=== PATIENT | female | born 1975 | race Caucasian/White ===

== ENCOUNTER 2016-11-01 05:40 | Day surgery (SDC) | payer OTHER ==
[~2016-11-01] VITALS: Ht 165.1 cm; Wt 67.0 kg
[~2016-11-01 05:40] MED LIST: FLOVENT 44120 INHALA IH; GINGER500 MG PO; KLONOPIN0.5 M1 PO; VENTOLIN HFA18 GM IH
[2016-11-01 06:31] VITALS: BP 136/91
[2016-11-01 08:40] VITALS: BP 109/71
[2016-11-01 09:45] VITALS: BP 109/69
== END 2016-11-01 10:08 | disposition home or self-care (01) ==
LOC: SDC 05:40
PROC: 0U5G7ZZ Destruction of Vagina, Via Natural or Artificial Opening (ICD-10-PCS; principal; 2016-11-01)
DX: N89.0 Mild vaginal dysplasia (principal); J45.20 Mild intermittent asthma, uncomplicated; K21.9 Gastro-esophageal reflux disease without esophagitis; Z86.19 Personal history of other infectious and parasitic diseases; F41.9 Anxiety disorder, unspecified; G62.9 Polyneuropathy, unspecified; Z82.49 Family history of ischemic heart disease and other diseases of the circulatory system; Z82.5 Family history of asthma and other chronic lower respiratory diseases; Z82.61 Family history of arthritis; Z83.49 Family history of other endocrine, nutritional and metabolic diseases; Z82.69 Family history of other diseases of the musculoskeletal system and connective tissue
CPT/HCPCS: 88305; J0131; J1100; J1580; J2250; J2405; J3010; J7050; S0030